=== PATIENT | male | born 1985 | race Caucasian/White ===

== ENCOUNTER 2020-06-02 12:51 | Emergency (ER) | payer OTHER ==
[~2020-06-02] VITALS: Ht 180.3 cm; Wt 97.5 kg
[~2020-06-02 12:51] MED LIST: CHLO25 PO; CITA20 PO; Celexa40 MG PO; Hair, Skin & N1 EACH PO; TRAZ100 PO; ZOLP10 PO; Zofran Odt4 MG SL
[2020-06-02] MEDS ORDERED: Norco 5-325 Ta1 EACH PO (16:25)
[2020-06-02] MEDS ORDERED: SULTRIDS PO (16:25)
[2020-06-02] MEDS ORDERED: CEPH500 PO (16:25)
[2020-06-03] MEDS ORDERED: TRAM50 PO (13:13)
[2020-06-03] MEDS ORDERED: ONDA4 PO (13:13)
== END 2020-06-02 16:45 | disposition home or self-care (01) ==
LOC: ER 12:51
DX: S61.313A Laceration without foreign body of left middle finger with damage to nail, initial encounter (principal); F17.200 Nicotine dependence, unspecified, uncomplicated; W23.0XXA Caught, crushed, jammed, or pinched between moving objects, initial encounter; Y92.89 Other specified places as the place of occurrence of the external cause; Y99.0 Civilian activity done for income or pay
CPT/HCPCS: 12001; 73140; 90471; 90714; 96365-59; 99283-25; J0690

== ENCOUNTER → 2024-12-07 | Outpatient (CLI) | payer OTHER ==
[~2024-12-07] MED LIST changes: +CEPH500 PO; +Norco 5-325 Ta1 EACH PO; +ONDA4 PO; +SULTRIDS PO; +TRAM50 PO
[2024-12-10 15:23] LABS: APTIMA MEDIA TYPE Urine; C. TRACHOMATIS BY TMA Negative (Negative); N. GONORRHOEAE BY TMA Negative (Negative)
== END | disposition home or self-care (01) ==
LOC: LAB 14:30 → LAB SHORT 14:30
PROVIDERS: Nurse Practitioner Family
DX: Z11.3 Encounter for screening for infections with a predominantly sexual mode of transmission (principal); N39.0 Urinary tract infection, site not specified
CPT/HCPCS: 87086; 87491; 87591